=== PATIENT | male | born 1930 | race African-American/Black ===

== ENCOUNTER 2018-07-15 11:41 | Inpatient (IN) | payer MEDICARE, MEDICAID, OTHER ==
[~2018-07-15] VITALS: Ht 167.6 cm; Wt 52.2 kg
[~2018-07-15 11:41] MED LIST: ALBU6.7H INH; ASPIRIN; [UNRECOGNIZED DRUG - REMARK]
[2018-07-15 15:25] LABS: BASOPHILS % 0.7 % (0.0-2.0); EOSINOPHILS % 0.1 % (0.0-5.0); HEMATOCRIT. 33.3 % (42.0-52.0); HEMOGLOBIN. 10.8 g/dL (14.0-18.0); LYMPHOCYTES % 15.4 % (20.0-50.0); MEAN CORPUSCULAR HEMOGLOBIN 26.5 pg (28.0-32.0); MEAN CORPUSCULAR VOLUME 81.6 fL (80.0-94.0); MEAN PLATELET VOLUME 7.6 fl (7.4-10.4); MONOCYTES % 4.7 % (2.0-8.0); NEUTROPHILS % 79.1 % (40.0-76.0); PLATELET 228 x1000/uL (130-400); RED BLOOD CELL COUNT 4.09 mill/uL (4.7-6.1); RED CELL DISTRIBUTION WIDTH 18.7 % (11.6-14.6)
[2018-07-15 15:30] LABS: CHLORIDE 108 mEq/L (98-107)
[2018-07-15 15:34] LABS: ETHANOL BLOOD < 10 mg/dL
[2018-07-15 15:35] LABS: D-DIMER 1.19 mg/L FEU (<0.50); INR 1.1; PARTIAL THROMBOPLASTIN TIME 32.2 sec (23.4-31.0); PROTHROMBIN TIME 11.3 sec (9.1-11.1)
[2018-07-15] MEDS ORDERED: FUROSEMIDE 40MG/4ML VIAL IVP ONE (16:00)
[2018-07-15 16:19] LABS: CLARITY URINE CLOUDY (CLEAR); COLOR URINE YELLOW (YELLOW); KETONES URINE NEGATIVE (NEGATIVE); LEUKOCYTE ESTERASE URINE TRACE (NEGATIVE); NITRITE URINE POSITIVE (NEGATIVE); OCCULT BLOOD URINE NEGATIVE (NEGATIVE); PH URINE >=9.0 (4.5-8.0); PROTEIN URINE 1+ (NEGATIVE); SPECIFIC GRAVITY URINE 1.014 (1.005-1.030); UROBILINOGEN URINE 0.2 E.U./dL (0.2-1.0)
[2018-07-15] MEDS ORDERED: LEVOFLOXACIN 750MG PREMIX 150 ML IV ONE (16:45)
[2018-07-15] MEDS ORDERED: ACETAMINOPHEN 325MG TABLET PO PRN (19:45)
[2018-07-15] MEDS ORDERED: CLONIDINE 0.1MG TABLET PO PRN (19:45)
[2018-07-15] MEDS ORDERED: HYDROCODONE/ACETAMINOPHEN 5/325MG TABLET PO PRN (19:45)
[2018-07-15] MEDS ORDERED: IPRATROPIUM/ALBUTEROL 0.5-3(2.5)MG/3ML NEB INH PRN (19:45)
[2018-07-15] MEDS ORDERED: DOCUSATE SODIUM 100MG CAPSULE PO PRN (19:45)
[2018-07-15] MEDS ORDERED: GUAIFENESIN 200MG/10ML SUGAR FREE UDC PO PRN (19:45)
[2018-07-15] MEDS ORDERED: ONDANSETRON HCL 4MG/2ML INJ IV PRN (19:45)
[2018-07-15 20:00] VITALS: BP 147/68
[2018-07-15 21:30] VITALS: BP 147/68
[2018-07-15] MEDS: PIPERACILLIN/TAZ 3.375G PREMIX 50 ML IV SCH (23:28)
[2018-07-16] VITALS: BP 126/63
[2018-07-16 04:00] VITALS: BP 143/73
[2018-07-16] MEDS: PIPERACILLIN/TAZ 3.375G PREMIX 50 ML IV SCH (05:15)
[2018-07-16 08:46] VITALS: BP 147/69
[2018-07-16] MEDS ORDERED: AMLODIPINE 10MG TABLET PO SCH (09:00)
[2018-07-16] MEDS ORDERED: ASPIRIN 81MG EC TABLET PO SCH (09:00)
[2018-07-16] MEDS ORDERED: ENOXAPARIN 30MG/0.3ML SYR SUBCUT SCH (09:00)
[2018-07-16] MEDS ORDERED: FUROSEMIDE 40MG/4ML VIAL IV SCH (09:00)
[2018-07-16 10:19] LABS: CHLORIDE 107 mEq/L (98-107)
[2018-07-16 10:35] LABS: HEMATOCRIT. 36.2 % (42.0-52.0); HEMOGLOBIN. 12.1 g/dL (14.0-18.0); LDL CHOLESTEROL 88 mg/dL (5-100); MEAN CORPUSCULAR VOLUME 81.2 fL (80.0-94.0); PLATELET 253 x1000/uL (130-400); RED BLOOD CELL COUNT 4.46 mill/uL (4.7-6.1); RED CELL DISTRIBUTION WIDTH 18.8 % (11.6-14.6)
[2018-07-16 10:37] LABS: HDL CHOLESTEROL 58 mg/dL (40-59)
[2018-07-16 12:40] VITALS: BP 130/75
[2018-07-16 14:20] VITALS: BP 130/75
[2018-07-16 19:06] LABS: PLATELET ESTIMATE NORMAL
== END 2018-07-16 15:00 | disposition home or self-care (01) | DRG 683 ==
LOC: ER 12:13 → 6WST 16:38 → EDBEDREQ 16:40 → EDBEDREQTM 16:40 → EDBEDREQ 16:49 → SUPCPDRO 19:29 → ENRESERV 19:50
PROVIDERS: ADMIT Hospitalist; ATTEND Hospitalist
DX: N17.9 Acute kidney failure, unspecified (principal); N39.0 Urinary tract infection, site not specified; N49.2 Inflammatory disorders of scrotum; D63.8 Anemia in other chronic diseases classified elsewhere; N41.9 Inflammatory disease of prostate, unspecified; J44.9 Chronic obstructive pulmonary disease, unspecified; Z85.46 Personal history of malignant neoplasm of prostate; Z85.51 Personal history of malignant neoplasm of bladder; Z87.891 Personal history of nicotine dependence; Z93.3 Colostomy status; Z79.82 Long term (current) use of aspirin; Z79.899 Other long term (current) drug therapy
CPT/HCPCS: 36415; 71045; 74176; 76870; 80053; 80061; 81003; 83605; 83690; 83880; 84484; 85025; 85379; 85610; 85730; 87040; 93005; 93306; 93970; 93976; 96374; 96375; 99285; G0482; J1650; J1940; J1956; J2543

== ENCOUNTER 2018-07-30 15:30 | Inpatient (IN) | payer MEDICARE, OTHER ==
[~2018-07-30] VITALS: Ht 322.6 cm; Wt 64.4 kg
[2018-07-30] MEDS ORDERED: NITROGLYCERIN OINT 1GM/INCH UDPKT TD ONE (18:30)
[2018-07-30] MEDS ORDERED: FUROSEMIDE 40MG/4ML VIAL IV ONE (18:30)
[2018-07-30 19:26] LABS: HEMATOCRIT. 33.2 % (42.0-52.0); HEMOGLOBIN. 10.7 g/dL (14.0-18.0); MEAN CORPUSCULAR HEMOGLOBIN 26.5 pg (28.0-32.0); MEAN CORPUSCULAR VOLUME 82.2 fL (80.0-94.0); MEAN PLATELET VOLUME 8.5 fl (7.4-10.4); PLATELET 392 x1000/uL (130-400); RED BLOOD CELL COUNT 4.04 mill/uL (4.7-6.1); RED CELL DISTRIBUTION WIDTH 19.6 % (11.6-14.6)
[2018-07-30 19:58] LABS: PLATELET ESTIMATE NORMAL
[2018-07-30 20:45] LABS: INR 1.2; PROTHROMBIN TIME 11.6 sec (9.1-11.1)
[2018-07-30 20:53] LABS: CHLORIDE 106 mEq/L (98-107)
[2018-07-30] MEDS ORDERED: GUAIFENESIN 200MG/10ML SUGAR FREE UDC PO PRN (21:15)
[2018-07-30] MEDS ORDERED: LORAZEPAM 2MG/ML CPJ IV PRN (21:15)
[2018-07-30] MEDS: ENOXAPARIN 40MG/0.4ML SYR SUBCUT SCH (21:15)
[2018-07-30] MEDS ORDERED: ONDANSETRON HCL 4MG/2ML INJ IV PRN (21:15)
[2018-07-30] MEDS ORDERED: ACETAMINOPHEN 325MG TABLET PO PRN (21:15)
[2018-07-30] MEDS ORDERED: CLONIDINE 0.1MG TABLET PO PRN (21:15)
[2018-07-30] MEDS ORDERED: ASPIRIN 325MG TABLET PO ONE (22:15)
[2018-07-30 22:43] VITALS: BP 144/69
[2018-07-31] VITALS: BP_SYST 141; BP_SYST 144; BP_DIAS 69; BP_DIAS 72
[2018-07-31 04:00] VITALS: BP 133/72
[2018-07-31 07:18] LABS: HEMATOCRIT. 28.5 % (42.0-52.0); HEMOGLOBIN. 9.6 g/dL (14.0-18.0); MEAN CORPUSCULAR HEMOGLOBIN 27.4 pg (28.0-32.0); MEAN CORPUSCULAR VOLUME 81.5 fL (80.0-94.0); MEAN PLATELET VOLUME 7.4 fl (7.4-10.4); PLATELET 268 x1000/uL (130-400)
[2018-07-31 08:00] VITALS: BP 155/78
[2018-07-31 08:16] LABS: CHLORIDE 107 mEq/L (98-107)
[2018-07-31 08:37] LABS: LDL CHOLESTEROL 86 mg/dL (5-100)
[2018-07-31 08:39] LABS: HDL CHOLESTEROL 64 mg/dL (40-59)
[2018-07-31] MEDS: AMLODIPINE 10MG TABLET PO SCH (09:16)
[2018-07-31] MEDS: ASPIRIN 81MG EC TABLET PO SCH (09:16)
[2018-07-31] MEDS: FUROSEMIDE 40MG/4ML VIAL IV SCH (09:16)
[2018-07-31] MEDS: DOCUSATE SODIUM 100MG CAPSULE PO PRN (09:17)
[2018-07-31] MEDS: HYDROCODONE/ACETAMINOPHEN 5/325MG TABLET PO PRN ×2 (09:17→20:19)
[2018-07-31 12:00] VITALS: BP 129/59
[2018-07-31] MEDS ORDERED: PNEUMOCOCCAL 23-VAL P-SAC VAC 0.5 ML IM ONE (12:00)
[2018-07-31] MEDS ORDERED: INFLUENZA VIRUS VACCINE(AFLURIA) 0.5ML SYR IM ONE (12:00)
[2018-07-31 16:00] VITALS: BP 137/59
[2018-07-31 17:18] LABS: PLATELET ESTIMATE NORMAL
[2018-07-31 20:00] VITALS: BP 150/74
[2018-07-31] MEDS: ENOXAPARIN 40MG/0.4ML SYR SUBCUT SCH (20:18)
[2018-08-01] VITALS: BP 155/69
[2018-08-01] MEDS: HYDROCODONE/ACETAMINOPHEN 5/325MG TABLET PO PRN ×2 (01:06→09:07)
[2018-08-01 04:00] VITALS: BP 154/81
[2018-08-01 08:18] VITALS: BP 109/76
[2018-08-01] MEDS: ASPIRIN 81MG EC TABLET PO SCH (09:00)
[2018-08-01] MEDS: FUROSEMIDE 40MG/4ML VIAL IV SCH (09:06)
[2018-08-01] MEDS: AMLODIPINE 10MG TABLET PO SCH (09:06)
[2018-08-01] MEDS: DOCUSATE SODIUM 100MG CAPSULE PO PRN (09:07)
[2018-08-01 14:08] VITALS: BP 102/75
== END 2018-08-01 15:10 | disposition home or self-care (01) | DRG 291 ==
LOC: ER 17:18 → 5WST 20:38 → EDBEDREQ 20:44 → EDBEDREQTM 20:44 → SUPCPDRO 21:03 → ENRESERV 21:23
PROVIDERS: ADMIT Hospitalist; ATTEND Hospitalist
DX: I11.0 Hypertensive heart disease with heart failure (principal); I50.21 Acute systolic (congestive) heart failure; J44.1 Chronic obstructive pulmonary disease with (acute) exacerbation; N17.9 Acute kidney failure, unspecified; L89.150 Pressure ulcer of sacral region, unstageable; L89.220 Pressure ulcer of left hip, unstageable; Z82.49 Family history of ischemic heart disease and other diseases of the circulatory system; Z93.3 Colostomy status; Z79.899 Other long term (current) drug therapy; Z93.6 Other artificial openings of urinary tract status; Z87.440 Personal history of urinary (tract) infections; Z85.51 Personal history of malignant neoplasm of bladder; Z85.46 Personal history of malignant neoplasm of prostate
CPT/HCPCS: 36415; 71045; 80053; 80061; 83880; 84134; 84484; 85025; 85610; 93005; 93970; 96374; 99285; J1650; J1940